=== PATIENT | female | born 1990 | race Two or more races ===

== ENCOUNTER 2022-01-15 19:39 | Emergency (ER) | payer OTHER ==
[2022-01-15 20:10] VITALS: BMI 27.4
[2022-01-15] MEDS ORDERED: IBUPROFEN 600 MG TABLET (FP) PO ONE (20:28)
[2022-01-15] MEDS ORDERED: predniSONE 20 MG TABLET (UD) PO ONE (21:30)
[2022-01-15] MEDS ORDERED: ALBUTEROL SO4 2.5/IPRATROPIUM 0.5 INH SOL 3 ML VIAL.NEB. NEB ONE (21:31)
[2022-01-15] MEDS ORDERED: predniSONE 20 MG TABLET (UD) ONE (21:32)
[2022-01-15 22:10] VITALS: BP 110/68; PULSE 98; TEMP 99.6
== END 2022-01-15 22:10 | disposition home or self-care (01) ==
LOC: JER 19:39
PROC: 3E0F7GC Introduction of Other Therapeutic Substance into Respiratory Tract, Via Natural or Artificial Opening (ICD-10-PCS; principal; 2022-01-15)
DX: J06.9 Acute upper respiratory infection, unspecified (principal); R09.81 Nasal congestion; J45.909 Unspecified asthma, uncomplicated
CPT/HCPCS: 87651; 87804; 99283-25; C9803-CS; U0003; U0005

== ENCOUNTER 2022-11-09 17:45 | Emergency (ER) | payer OTHER ==
[2022-11-09 17:56] VITALS: BP 124/80; PULSE 91; RESP 18; TEMP 98; BMI 27.4
[2022-11-09] MEDS ORDERED: ALBUTEROL SO4 2.5/IPRATROPIUM 0.5 INH SOL 3 ML VIAL.NEB. NEB ONE ×2 (19:05→19:08)
[2022-11-09] MEDS ORDERED: predniSONE 20 MG TABLET (UD) PO ONE (19:20)
[2022-11-09] MEDS ORDERED: predniSONE 20 MG TABLET (UD) ONE (19:23)
== END 2022-11-09 21:20 | disposition home or self-care (01) ==
LOC: JERFT 17:45
PROC: 3E0F7GC Introduction of Other Therapeutic Substance into Respiratory Tract, Via Natural or Artificial Opening (ICD-10-PCS; principal; 2022-11-09)
DX: R05.1 Acute cough (principal); R06.2 Wheezing
CPT/HCPCS: 71045-TC-FY; 99283-25